=== PATIENT | male | born 1965 | race Caucasian/White ===

== ENCOUNTER 2021-12-28 13:48 | Emergency (ER) | payer OTHER, MEDICAID, SELFPAY ==
[2021-12-28] VITALS (10 sets, daily range): BP systolic 174–197; BP diastolic 99–124; PULSE 66–82; RESP 20; TEMP 36; O2SAT 96–99; BMI 32.8
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
--- NOTE | 2021-12-28 14:39 | DI.RAD.S_ITS ---
PROCEDURE: XR CLAVICLE RT INDICATIONS: R clavicle pain s/p fall TECHNIQUE: 2 views of the clavicle were acquired. COMPARISON: [facility], CR, XR SHOULDER RT MIN 2V, 12/28/2021, 14:51. FINDINGS: Bones: There is a comminuted fracture in the mid clavicular shaft with superior displacement of the proximal fracture fragment and overriding of fracture fragments. No suspicious bony lesions. Soft tissues: No suspicious soft tissue calcifications. IMPRESSION: Comminuted clavicular shaft fracture with displacement. Dictated by: Abigail De Anda M.D. on 12/28/2021 at 15:03 Approved by: Abigail De Anda M.D. on 12/28/2021 at 15:05
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
--- NOTE | 2021-12-28 16:40 | PC.NURSE ---
Riana pt mireya informed me that pt admitted to her that he is worried about being dope sick because he uses heroin with the fentanyl. Riana states she offered pt room at her house to watch him all night and he declined, stating he has a dog in his truck down [facility] and he is going to sleep there tonight.
[2021-12-28] MEDS: ONDANSETRON 4 MG ODT SL (16:46)
[2021-12-28] MEDS: HYDROCODONE/ACET 5/325 TABLET 1 TAB PO (16:59)
== END 2021-12-28 18:06 | disposition home or self-care (01) ==
PROVIDERS: Emergency Provider Physician Assistant Medical
DX: S42.021A Displaced fracture of shaft of right clavicle, initial encounter for closed fracture (principal); R07.81 Pleurodynia; V19.9XXA Pedal cyclist (driver) (passenger) injured in unspecified traffic accident, initial encounter
CPT/HCPCS: 70450; 71046; 73000; 73030; 99283

== ENCOUNTER 2024-02-16 09:10 | Emergency (ER) | payer OTHER, SELFPAY ==
--- NOTE | 2024-02-16 09:14 | ED.GENADULT ---
HPI - General Adult General Chief complaint: Weakness Stated complaint: Fit for half-way Time Seen by Provider: 02/16/24 09:10 History of Present Illness HPI narrative: 59-year-old gentleman with a history hypertension sleep apnea housing instability food insecurity brought in by police to be medically cleared prior to half-way. The patient told the police that he felt like he was going to pass out, he tells me that he is ?feeling much better?. When asked if he has any acute issues or concerns, he denies any medical problems, states he takes no medications and denies any acute issue such as chest pain, shortness for breath, musculoskeletal injuries, recent upper respiratory complaints, nausea vomiting or diarrhea. Related Data Allergies Allergy/AdvReac Type Severity Reaction Status Date / Time No Known Drug Allergies Allergy Unverified 02/19/22 09:36 Review of Systems Review of Systems Narrative: Pertinent positive and negative findings as per HPI Patient History Medical History (Updated 02/16/24 @ 09:20 by Rose Toscano MD) HTN (hypertension) Social History Smoking Status: Current every day smoker Smoking Status: Current every day smoker Exam Initial Vital Signs Initial Vital Signs: Vital Signs Temperature 97.6 F 02/16/24 09:17 Pulse Rate 61 02/16/24 09:17 Respiratory Rate 18 02/16/24 09:17 Blood Pressure 130/95 H 02/16/24 09:17 Pulse Oximetry 98 02/16/24 09:17 Oxygen Delivery Method Room Air 02/16/24 09:17 General: Chronically ill-appearing, disheveled, able to speak in complete sentences HEENT: Moist mucous membranes, normal sclera with reactive pupils, Respiratory: Lungs are clear to auscultation, Cardiac: Regular rate and rhythm no murmurs Abdomen: Soft, nontender, Neurologic: Grossly neurologically intact with no obvious asymmetries or abnormalities, he is in handcuffs at the time of my exam Extremities: No obvious trauma, he is able to walk without pain Psych: Cooperative, subdued to flat affect, poor eye contact Medical Decision Making MDM Narrative Medical decision making narrative: 59-year-old gentleman denies any acute medical issues, review of previous medical records suggests a diagnosis of hypertension. He is disheveled and appears chronically unwell but denies any acute findings. Exam is completely benign with normal pulmonary, cardiac and abdominal exams. He is able to walk without difficulty. No signs of respiratory distress or infection. He has no other complaints. He is medically clear for half-way Discharge Plan Departure Patient Disposition: Home Clinical Impression: Medical clearance for incarceration Activity Restrictions/Additional Instructions: Screening physical exam in the emergency department is unremarkable today Patient has stated that he does not have any acute issues such as chest pain, palpitations, fevers, cough, chills, abdominal pain He is medically cleared for half-way Referrals: Miscellaneous,Doctor, [Primary Care Provider] - Stand Alone Forms: Patient Portal/API/Survey
[2024-02-16 09:17] VITALS: BP 130/95; PULSE 61; RESP 18; TEMP 36.4; O2SAT 98; BMI 25.8
== END 2024-02-16 09:40 | disposition home or self-care (01) ==
LOC: ED 09:27
PROVIDERS: Emergency Provider Emergency Medicine
DX: Z00.8 Encounter for other general examination (principal); R55 Syncope and collapse
CPT/HCPCS: 99281